=== PATIENT | female | born 1995 | race Caucasian/White ===

== ENCOUNTER 2018-07-12 12:30 | Inpatient (IN) | payer BC ==
[2018-07-12] MEDS ORDERED: Misoprostol 200 MCG Tab PO PRN (12:52)
[2018-07-12] MEDS ORDERED: Lidocaine 1% 50 ML MDV INJECT PRN (12:52)
[2018-07-12] MEDS ORDERED: Sodium Chloride 0.9% 10 ML Syringe FLUSH PRN (12:52)
[2018-07-12] MEDS ORDERED: Nalbuphine 10 MG/1 ML Vial IVPUSH PRN (12:52)
[2018-07-12] MEDS ORDERED: Methylergonovine 0.2 MG/1 ML Amp IM PRN (12:52)
[2018-07-12] MEDS ORDERED: Tranexamic Acid 1,000 MG in Sodium Chloride 0.9% 100 ML IV PRN (12:52)
[2018-07-12] MEDS ORDERED: Water For Irrigation,Sterile 1,000 ML Container IRR PRN (12:52)
[2018-07-12] MEDS ORDERED: Butorphanol 1 MG/ML SDV IVPUSH PRN (12:52)
[2018-07-12] MEDS ORDERED: Carboprost Tromethamine 250 MCG/1 ML Amp IM PRN (12:52)
[2018-07-12] MEDS ORDERED: Sodium Chloride 0.9% 2.5 ML Syringe FLUSH PRN (12:52)
[2018-07-12] MEDS ORDERED: Misoprostol 25 MCG (1/4 of 100 MCG) Tab VAG PRN ×2 (12:54)
[2018-07-12] MEDS ORDERED: Terbutaline 1 MG/ML SDV SUBCUT PRN (12:54)
[2018-07-12] MEDS ORDERED: Oxytocin/0.9 % Sodium Chloride 30 UNIT/500 ML BAG IV SCH ×2 (13:00)
[2018-07-12] MEDS: Lactated Ringers 1,000 ML IV SCH ×2 (20:37→22:37)
--- NOTE | 2018-07-12 23:51 | PCM.PREANE ---
Preanesthetic Assessment - Anesthesia/Transfusion/Family Hx Anesthesia History: Prior Anesthesia Without Reaction Family History of Anesthesia Reaction: No Transfusion History: No Prior Transfusion(s) Intubation History: Unknown - Review of Systems General: No Symptoms Pulmonary: No Symptoms Cardiovascular: No Symptoms Gastrointestinal: No Symptoms Neurological: No Symptoms Other: Reports: None - Physical Assessment Height: 5 ft 8 in Weight: 89.358 kg ASA Class: 2 Mental Status: Alert & Oriented x3 Airway Class: Mallampati = 2 Dentition: Reports: Normal Dentition Thyro-Mental Finger Breadths: 3 Mouth Opening Finger Breadths: 3 ROM/Head Extension: Full Lungs: Clear to Auscultation, Normal Respiratory Effort Cardiovascular: Regular Rate, Regular Rhythm - Lab Values: Laboratory Last Values WBC 9.34 K/uL (4.0-11.0) 07/12/18 13:07 RBC 4.03 M/uL (4.30-5.90) L 07/12/18 13:07 Hgb 12.5 g/dL (12.0-16.0) 07/12/18 13:07 Hct 37.0 % (36.0-46.0) 07/12/18 13:07 MCV 91.8 fL (80.0-98.0) 07/12/18 13:07 MCH 31.0 pg (27.0-32.0) 07/12/18 13:07 MCHC 33.8 g/dL (31.0-37.0) 07/12/18 13:07 RDW Std Deviation 44.6 fl (28.0-62.0) 07/12/18 13:07 RDW Coeff of Ron 13 % (11.0-15.0) 07/12/18 13:07 Plt Count 155 K/uL (150-400) 07/12/18 13:07 MPV 12.20 fL (7.40-12.00) H 07/12/18 13:07 Nucleated RBC % 0.0 /100WBC 07/12/18 13:07 Nucleated RBCs # 0 K/uL 07/12/18 13:07 Blood Type A NEGATIVE 07/12/18 13:07 Antibody Screen NEGATIVE 07/12/18 13:07 - Allergies Allergies/Adverse Reactions: Allergies Allergy/AdvReac Type Severity Reaction Status Date / Time No Known Allergies Allergy Verified 11/10/15 08:36 - Acknowledgements Anesthesia Type Planned: Epidural Pt an Appropriate Candidate for the Planned Anesthesia: Yes Alternatives and Risks of Anesthesia Discussed w Pt/Guardian: Yes Pt/Guardian Understands and Agrees with Anesthesia Plan: Yes PreAnesthesia Questionnaire HEENT History: Reports: None Cardiovascular History: Reports: None Respiratory History: Reports: None Gastrointestinal History: Reports: GERD, Hiatal Hernia, Irritable Bowel Syndrome Other Gastrointestinal History: biliary gallbaldder disease Genitourinary History: Reports: None LABOURERS History: Reports: , Spontaneous : 2 Para: 0 LMP (Approximate): Musculoskeletal History: Reports: None Neurological History: Reports: None Psychiatric History: Reports: Anxiety, Depression, Panic Attack, PTSD Endocrine/Metabolic History: Reports: None Hematologic History: Reports: None Immunologic History: Reports: None Oncologic (Cancer) History: Reports: None Dermatologic History: Reports: None - Infectious Disease History Infectious Disease History: Reports: Chicken Pox - Past Surgical History HEENT Surgical History: Reports: None GI Surgical History: Reports: None Female Surgical History: Reports: D&C - SUBSTANCE USE Smoking Status *Q: Never Smoker Second Hand Smoke Exposure: Yes Recreational Drug Use History: No - CURRENT (IN HOUSE) MEDS Current Meds: Current Medications Butorphanol Tartrate (Stadol) 1 mg IVPUSH Q1H PRN PRN Reason: Pain Carboprost Tromethamine (Hemabate Ds) 250 mcg IM ASDIRECTED PRN PRN Reason: Post Hemorrhage Lactated Ringer's (Ringers, Lactated) 1,000 mls @ 150 mls/hr IV ASDIRECTED EDUARDO Last Admin: 07/12/18 22:37 Dose: 125 mls/hr Oxytocin/Sodium Chloride (Oxytocin 30 Unit/500 Ml-Ns) 30 unit in 500 mls @ 500 mls/hr IV TITRATE EDUARDO Last Admin: 07/12/18 21:29 Dose: 2 mls/hr Tranexamic Acid 1,000 mg/ (Sodium Chloride) 110 mls @ 660 mls/hr IV ONETIME PRN PRN Reason: Bleeding Oxytocin/Sodium Chloride (Oxytocin 30 Unit/500 Ml-Ns) 30 unit in 500 mls @ 2 mls/hr IV TITRATE [facility]; Protocol Lidocaine HCl (Xylocaine 1%) 50 ml INJECT ONETIME PRN PRN Reason: Laceration repair Methylergonovine Maleate (Methergine) 0.2 mg IM ASDIRECTED PRN PRN Reason: Post Hemorrhage Misoprostol (Cytotec) 200 mcg PO ONETIME PRN PRN Reason: Post Hemorrhage Misoprostol (Cytotec) 25 mcg VAG ONETIME PRN PRN Reason: Cervical Ripening Last Admin: 07/12/18 13:55 Dose: 25 mcg Misoprostol (Cytotec) 25 mcg VAG Q6H PRN PRN Reason: Cervical Ripening Nalbuphine HCl (Nubain) 10 mg IVPUSH Q1H PRN PRN Reason: Pain (severe 7-10) Sodium Chloride (Saline Flush) 10 ml FLUSH ASDIRECTED PRN PRN Reason: Keep Vein Open Sodium Chloride (Saline Flush) 2.5 ml FLUSH ASDIRECTED PRN PRN Reason: Keep Vein Open Sterile Water (Sterile Water For Irrigation) 1,000 ml IRR ASDIRECTED PRN PRN Reason: delivery Terbutaline Sulfate (Brethine) 0.25 mg SUBCUT ASDIRECTED PRN PRN Reason: Tacysystole
[2018-07-13] MEDS: Lactated Ringers 1,000 ML IV SCH ×2 (00:09→02:37)
[2018-07-13] MEDS ORDERED: oxyCODONE 5 MG Tab PO PRN (09:05)
[2018-07-13] MEDS ORDERED: Benzocaine/Menthol 20%-0.5% Spray 78 GM Cannister TOP PRN (09:05)
[2018-07-13] MEDS ORDERED: Bisacodyl 10 MG Supp RECTAL PRN (09:05)
[2018-07-13] MEDS ORDERED: Lanolin 100% Cream 7 GM Tube TOP PRN (09:05)
[2018-07-13] MEDS ORDERED: Methylergonovine 0.2 MG/1 ML Amp IM PRN (09:05)
[2018-07-13] MEDS ORDERED: Acetaminophen 500 MG Tab PO PRN (09:05)
[2018-07-13] MEDS ORDERED: Ibuprofen 400 MG Tab PO PRN (09:05)
--- NOTE | 2018-07-13 09:05 | PCM.DEL ---
L & D Note - General Info Date of Service: 07/13/18 Mother's Due Date: 07/09/18 - Delivery Note Labor: Spontaneous Delivery Outcome: Livebirth Infant Delivery Method: Spontaneous Vaginal Delivery-Single Presentation: Left Occiput Anterior (SHANNAN) Nuchal Cord: None Prep: Other Anesthesia Type: Epidural Episiotomy Type: None Laceration: Vaginal Suture type: Vicryl Suture size: 3-0 Placenta: Intact, Spontaneous Cord: 3 Vessels Estimated Blood Loss: 300 Resuscitation Needed: No : Suctioned Score 1 min: 8 Score 5 min: 9 - General Info Date of Service: 07/13/18 - Patient Data Weight - Most Recent: 89.358 kg Lab Results Last 24 Hours: Laboratory Results - last 24 hr 07/12/18 07/12/18 Range/Units 13:07 13:07 WBC 9.34 (4.0-11.0) K/uL RBC 4.03 L (4.30-5.90) M/uL Hgb 12.5 (12.0-16.0) g/dL Hct 37.0 (36.0-46.0) % MCV 91.8 (80.0-98.0) fL MCH 31.0 (27.0-32.0) pg MCHC 33.8 (31.0-37.0) g/dL RDW Std Deviation 44.6 (28.0-62.0) fl RDW Coeff of Ron 13 (11.0-15.0) % Plt Count 155 (150-400) K/uL MPV 12.20 H (7.40-12.00) fL Nucleated RBC % 0.0 /100WBC Nucleated RBCs # 0 K/uL Blood Type A NEGATIVE Antibody Screen NEGATIVE Med Orders - Current: Current Medications Butorphanol Tartrate (Stadol) 1 mg IVPUSH Q1H PRN PRN Reason: Pain Carboprost Tromethamine (Hemabate Ds) 250 mcg IM ASDIRECTED PRN PRN Reason: Post Hemorrhage Lactated Ringer's (Ringers, Lactated) 1,000 mls @ 150 mls/hr IV ASDIRECTED EDUARDO Last Admin: 07/13/18 02:37 Dose: 500 mls/hr Oxytocin/Sodium Chloride (Oxytocin 30 Unit/500 Ml-Ns) 30 unit in 500 mls @ 500 mls/hr IV TITRATE EDUARDO Last Admin: 07/12/18 21:29 Dose: 2 mls/hr Tranexamic Acid 1,000 mg/ (Sodium Chloride) 110 mls @ 660 mls/hr IV ONETIME PRN PRN Reason: Bleeding Oxytocin/Sodium Chloride (Oxytocin 30 Unit/500 Ml-Ns) 30 unit in 500 mls @ 2 mls/hr IV TITRATE [facility]; Protocol Lidocaine HCl (Xylocaine 1%) 50 ml INJECT ONETIME PRN PRN Reason: Laceration repair Methylergonovine Maleate (Methergine) 0.2 mg IM ASDIRECTED PRN PRN Reason: Post Hemorrhage Misoprostol (Cytotec) 200 mcg PO ONETIME PRN PRN Reason: Post Hemorrhage Misoprostol (Cytotec) 25 mcg VAG ONETIME PRN PRN Reason: Cervical Ripening Last Admin: 07/12/18 13:55 Dose: 25 mcg Misoprostol (Cytotec) 25 mcg VAG Q6H PRN PRN Reason: Cervical Ripening Nalbuphine HCl (Nubain) 10 mg IVPUSH Q1H PRN PRN Reason: Pain (severe 7-10) Sodium Chloride (Saline Flush) 10 ml FLUSH ASDIRECTED PRN PRN Reason: Keep Vein Open Sodium Chloride (Saline Flush) 2.5 ml FLUSH ASDIRECTED PRN PRN Reason: Keep Vein Open Sterile Water (Sterile Water For Irrigation) 1,000 ml IRR ASDIRECTED PRN PRN Reason: delivery Terbutaline Sulfate (Brethine) 0.25 mg SUBCUT ASDIRECTED PRN PRN Reason: Tacysystole Discontinued Medications Fentanyl/Bupivacaine HCl (Yaarnfuy-Buhzg-Dc 2 Mcg/Ml-0.125%) Confirm Administered Dose 100 mls @ as directed EP .STK-MED ONE Stop: 07/12/18 23:54 - Problem List & Annotations (1) Vaginal delivery SNOMED Code(s): 730257970 Code(s): O80 - ENCOUNTER FOR FULL-TERM UNCOMPLICATED DELIVERY Status: Acute Current Visit: Yes - Problem List Review Problem List Initiated/Reviewed/Updated: Yes
[2018-07-13] MEDS: Docusate Sodium 100 MG Cap PO PRN (11:12)
[2018-07-13] MEDS: Ibuprofen 800 MG Tab PO PRN ×2 (11:13→21:05)
[2018-07-13] MEDS: Witch Hazel Medicated Pads 40/Jar TOP PRN (11:14)
--- NOTE | 2018-07-13 15:32 | PCM48HPAN ---
Post Anesthesia Note - EVALUATION WITHIN 48HRS OF ANESTHETIC Vital Signs in Normal Range: Yes Patient Participated in Evaluation: Yes Respiratory Function Stable: Yes Airway Patent: Yes Cardiovascular Function Stable: Yes Hydration Status Stable: Yes Pain Control Satisfactory: Yes Nausea and Vomiting Control Satisfactory: Yes Mental Status Recovered: Yes
[2018-07-13] MEDS: Acetaminophen 500 MG Tab PO PRN (21:06)
[2018-07-14] MEDS: Ibuprofen 800 MG Tab PO PRN ×2 (06:26→14:52)
--- NOTE | 2018-07-14 06:57 | PCM.PNPP ---
- General Info Date of Service: 07/14/18 Functional Status: Reports: Pain Controlled, Tolerating Diet, Ambulating, Urinating, Other (struggling with . Has trouble with nursing, but latching ok.) - Review of Systems General: Reports: No Symptoms HEENT: Reports: No Symptoms Pulmonary: Reports: No Symptoms Cardiovascular: Reports: No Symptoms Gastrointestinal: Reports: No Symptoms Genitourinary: Reports: No Symptoms Musculoskeletal: Reports: No Symptoms Skin: Reports: No Symptoms Neurological: Reports: No Symptoms Psychiatric: Reports: No Symptoms - General Info Date of Service: 07/14/18 - Patient Data Vital Signs - Most Recent: Last Vital Signs Temp 37.1 C 07/13/18 13:16 Pulse 92 07/13/18 21:45 Resp 17 07/13/18 21:45 BP 124/75 07/13/18 21:45 Pulse Ox 98 07/13/18 21:45 Weight - Most Recent: 89.358 kg Lab Results - Last 24 Hours: Laboratory Results - last 24 hr 07/13/18 07/13/18 07/14/18 Range/Units 08:40 10:00 06:20 Hgb 11.2 L (12.0-16.0) g/dL Hct 33.6 L (36.0-46.0) % Cord ABG pH 7.266 (7.18-7.38) Cord ABG Base Excess -7 (-10--2) Cord VBG pH 7.251 (7.25-7.45) Cord VBG Base Excess -6 (-10--2) Screen NEGATIVE (NEGATIVE) RhIG Candidate? YES Rhogam Indicated YES, BABY RH POS H Med Orders - Current: Current Medications Acetaminophen (Tylenol Extra Strength) 500 mg PO Q4H PRN PRN Reason: Pain Acetaminophen (Tylenol Extra Strength) 1,000 mg PO Q4H PRN PRN Reason: Pain Last Admin: 07/13/18 21:06 Dose: 1,000 mg Benzocaine/Menthol (Dermoplast Pain Relief 20%-0.5% [place]) 78 gm TOP ASDIRECTED PRN PRN Reason: Perineal Comfort Measure Last Admin: 07/13/18 11:14 Dose: 1 canister Bisacodyl (Dulcolax) 10 mg RECTAL ONETIME PRN PRN Reason: Constipation Docusate Sodium (Colace) 100 mg PO BID PRN PRN Reason: Constipation Last Admin: 07/13/18 11:12 Dose: 100 mg Emollient Ointment (Lansinoh Hpa) 0 gm TOP ASDIRECTED PRN PRN Reason: Sore Nipples Ibuprofen (Motrin) 400 mg PO Q4H PRN PRN Reason: Pain Ibuprofen (Motrin) 800 mg PO Q6H PRN PRN Reason: Pain Last Admin: 07/14/18 06:26 Dose: 800 mg Methylergonovine Maleate (Methergine) 0.2 mg IM ONETIME PRN PRN Reason: Excessive Vaginal Bleeding Oxycodone HCl (Oxycodone) 5 mg PO Q2H PRN PRN Reason: Pain Witch Yanira (Tucks) 1 pad TOP ASDIRECTED PRN PRN Reason: comfort care Last Admin: 07/13/18 11:14 Dose: 1 container Discontinued Medications Butorphanol Tartrate (Stadol) 1 mg IVPUSH Q1H PRN PRN Reason: Pain Carboprost Tromethamine (Hemabate Ds) 250 mcg IM ASDIRECTED PRN PRN Reason: Post Hemorrhage Lactated Ringer's (Ringers, Lactated) 1,000 mls @ 150 mls/hr IV ASDIRECTED EDUARDO Last Admin: 07/13/18 02:37 Dose: 500 mls/hr Oxytocin/Sodium Chloride (Oxytocin 30 Unit/500 Ml-Ns) 30 unit in 500 mls @ 500 mls/hr IV TITRATE [facility] Last Admin: 07/12/18 21:29 Dose: 2 mls/hr Tranexamic Acid 1,000 mg/ (Sodium Chloride) 110 mls @ 660 mls/hr IV ONETIME PRN PRN Reason: Bleeding Oxytocin/Sodium Chloride (Oxytocin 30 Unit/500 Ml-Ns) 30 unit in 500 mls @ 2 mls/hr IV TITRATE [facility]; Protocol Fentanyl/Bupivacaine HCl (Yyoclpmt-Bicwc-Tl 2 Mcg/Ml-0.125%) Confirm Administered Dose 100 mls @ as directed EP .STK-MED ONE Stop: 07/12/18 23:54 Lidocaine HCl (Xylocaine 1%) 50 ml INJECT ONETIME PRN PRN Reason: Laceration repair Methylergonovine Maleate (Methergine) 0.2 mg IM ASDIRECTED PRN PRN Reason: Post Hemorrhage Misoprostol (Cytotec) 200 mcg PO ONETIME PRN PRN Reason: Post Hemorrhage Misoprostol (Cytotec) 25 mcg VAG ONETIME PRN PRN Reason: Cervical Ripening Last Admin: 07/12/18 13:55 Dose: 25 mcg Misoprostol (Cytotec) 25 mcg VAG Q6H PRN PRN Reason: Cervical Ripening Nalbuphine HCl (Nubain) 10 mg IVPUSH Q1H PRN PRN Reason: Pain (severe 7-10) Sodium Chloride (Saline Flush) 10 ml FLUSH ASDIRECTED PRN PRN Reason: Keep Vein Open Sodium Chloride (Saline Flush) 2.5 ml FLUSH ASDIRECTED PRN PRN Reason: Keep Vein Open Sterile Water (Sterile Water For Irrigation) 1,000 ml IRR ASDIRECTED PRN PRN Reason: delivery Terbutaline Sulfate (Brethine) 0.25 mg SUBCUT ASDIRECTED PRN PRN Reason: Tacysystole - Interaction Disposition, : [place] at Bedside Interaction: Holding Feeding: Attempted ; Nursed Fair/Poor Support Person: Significant Other - Recovery Exam Fundal Tone: Firm Fundal Level: At Umbilicus Fundal Placement: Midline Lochia Amount: Small Lochia Color: Rubra/Red Perineum Description: Intact, Minimal Bruising/Swelling Bladder Status: Voiding - Exam General: Alert, Oriented HEENT: Pupils Equal Neck: Supple Lungs: Clear to Auscultation, Normal Respiratory Effort Cardiovascular: Regular Rate, Regular Rhythm GI/Abdominal Exam: Normal Bowel Sounds, Soft, No Distention, No Abnormal Bruit, No Mass Extremities: Normal Inspection, No Pedal Edema Skin: Warm, Dry, Intact Neurological: No New Focal Deficit Psy/Mental Status: Alert, Normal Affect, Normal Mood - Problem List & Annotations (1) Vaginal delivery SNOMED Code(s): 468788704 Code(s): O80 - ENCOUNTER FOR FULL-TERM UNCOMPLICATED DELIVERY Status: Acute Current Visit: Yes - Problem List Review Problem List Initiated/Reviewed/Updated: Yes - My Orders Last 24 Hours: My Active Orders 07/13/18 09:05 Acetaminophen [Tylenol Extra Strength] 1,000 mg PO Q4H PRN Acetaminophen [Tylenol Extra Strength] 500 mg PO Q4H PRN Benzocaine/Menthol [Dermoplast Pain Relief 20%-0.5% [place]] 78 gm TOP ASDIRECTED PRN Bisacodyl [Dulcolax] 10 mg RECTAL ONETIME PRN Docusate Sodium [Colace] 100 mg PO BID PRN Ibuprofen [Motrin] 400 mg PO Q4H PRN Ibuprofen [Motrin] 800 mg PO Q6H PRN Lanolin [Lansinoh HPA] See Dose Instructions TOP ASDIRECTED PRN Methylergonovine [Methergine] 0.2 mg IM ONETIME PRN Witch Yanira [Tucks] 1 pad TOP ASDIRECTED PRN oxyCODONE 5 mg PO Q2H PRN Resuscitation Status Routine 07/13/18 09:06 Patient Status [ADT] Routine May Shower [RC] ASDIRECTED Up ad Winter [RC] ASDIRECTED Vital Signs [RC] PER UNIT ROUTINE Assess Lochia [WOMSER] Per Unit Routine Assess Uterine Involution [WOMSER] Per Unit Routine Perineal Care [OM.PC] Per Unit Routine Peripheral IV Discontinue [OM.PC] Routine 07/13/18 10:00 SCREEN [BBK] Routine RH IMMUNE GLOBULIN [BBK] Routine RHIG WORKUP, [BBK] Routine 07/13/18 Lunch Regular Diet [DIET] - Assessment Assessment:: PPD#1 after , working on , moderate lochia, tolerating diet, - Plan Plan:: STill would like support, may want to stay until tomorrow, discharge instructions reviewed in case she wants to go home later today.
[2018-07-14] MEDS: Acetaminophen 500 MG Tab PO PRN ×2 (08:19→22:14)
[2018-07-14] MEDS: Witch Hazel Medicated Pads 40/Jar TOP PRN (22:14)
[2018-07-15 07:17] VITALS: BP 122/76
[2018-07-15] MEDS: Ibuprofen 800 MG Tab PO PRN (07:27)
[2018-07-15] MEDS: Docusate Sodium 100 MG Cap PO PRN (07:27)
--- NOTE | 2018-07-15 08:47 | PCM.PNPP ---
- General Info Date of Service: 07/15/18 Functional Status: Reports: Pain Controlled, Tolerating Diet, Ambulating, Urinating ( is going better, sometimes tearful overall appropriate mood. Vulva is a little sore) - Review of Systems General: Reports: No Symptoms HEENT: Reports: No Symptoms Pulmonary: Reports: No Symptoms Cardiovascular: Reports: No Symptoms Gastrointestinal: Reports: No Symptoms Genitourinary: Reports: No Symptoms Musculoskeletal: Reports: No Symptoms Skin: Reports: No Symptoms Neurological: Reports: No Symptoms Psychiatric: Reports: No Symptoms - General Info Date of Service: 07/15/18 - Patient Data Vital Signs - Most Recent: Last Vital Signs Temp 36.7 C 07/15/18 07:16 Pulse 75 07/15/18 07:16 Resp 18 07/15/18 07:16 BP 122/76 07/15/18 07:16 Pulse Ox 95 07/15/18 07:16 Weight - Most Recent: 89.358 kg I&O - Last 24 Hours: Intake & Output 07/14/18 07/15/18 07/15/18 22:59 06:59 14:59 Intake Total 2 Balance 2 Lab Results - Last 24 Hours: Laboratory Results - last 24 hr 07/13/18 Range/Units 10:00 Screen NEGATIVE (NEGATIVE) RhIG Candidate? YES Rhogam Indicated YES, BABY RH POS H Med Orders - Current: Current Medications Acetaminophen (Tylenol Extra Strength) 500 mg PO Q4H PRN PRN Reason: Pain Acetaminophen (Tylenol Extra Strength) 1,000 mg PO Q4H PRN PRN Reason: Pain Last Admin: 07/14/18 22:14 Dose: 1,000 mg Benzocaine/Menthol (Dermoplast Pain Relief 20%-0.5% [place]) 78 gm TOP ASDIRECTED PRN PRN Reason: Perineal Comfort Measure Last Admin: 07/13/18 11:14 Dose: 1 canister Bisacodyl (Dulcolax) 10 mg RECTAL ONETIME PRN PRN Reason: Constipation Docusate Sodium (Colace) 100 mg PO BID PRN PRN Reason: Constipation Last Admin: 07/15/18 07:27 Dose: 100 mg Emollient Ointment (Lansinoh Hpa) 0 gm TOP ASDIRECTED PRN PRN Reason: Sore Nipples Ibuprofen (Motrin) 400 mg PO Q4H PRN PRN Reason: Pain Ibuprofen (Motrin) 800 mg PO Q6H PRN PRN Reason: Pain Last Admin: 07/15/18 07:27 Dose: 800 mg Methylergonovine Maleate (Methergine) 0.2 mg IM ONETIME PRN PRN Reason: Excessive Vaginal Bleeding Oxycodone HCl (Oxycodone) 5 mg PO Q2H PRN PRN Reason: Pain Witch Yanira (Tucks) 1 pad TOP ASDIRECTED PRN PRN Reason: comfort care Last Admin: 07/14/18 22:14 Dose: 1 container Discontinued Medications Butorphanol Tartrate (Stadol) 1 mg IVPUSH Q1H PRN PRN Reason: Pain Carboprost Tromethamine (Hemabate Ds) 250 mcg IM ASDIRECTED PRN PRN Reason: Post Hemorrhage Lactated Ringer's (Ringers, Lactated) 1,000 mls @ 150 mls/hr IV ASDIRECTED EDUARDO Last Admin: 07/13/18 02:37 Dose: 500 mls/hr Oxytocin/Sodium Chloride (Oxytocin 30 Unit/500 Ml-Ns) 30 unit in 500 mls @ 500 mls/hr IV TITRATE EDUARDO Last Admin: 07/12/18 21:29 Dose: 2 mls/hr Tranexamic Acid 1,000 mg/ (Sodium Chloride) 110 mls @ 660 mls/hr IV ONETIME PRN PRN Reason: Bleeding Oxytocin/Sodium Chloride (Oxytocin 30 Unit/500 Ml-Ns) 30 unit in 500 mls @ 2 mls/hr IV TITRATE [facility]; Protocol Fentanyl/Bupivacaine HCl (Ykuuijcl-Eqifu-Kb 2 Mcg/Ml-0.125%) Confirm Administered Dose 100 mls @ as directed EP .STK-MED ONE Stop: 07/12/18 23:54 Lidocaine HCl (Xylocaine 1%) 50 ml INJECT ONETIME PRN PRN Reason: Laceration repair Methylergonovine Maleate (Methergine) 0.2 mg IM ASDIRECTED PRN PRN Reason: Post Hemorrhage Misoprostol (Cytotec) 200 mcg PO ONETIME PRN PRN Reason: Post Hemorrhage Misoprostol (Cytotec) 25 mcg VAG ONETIME PRN PRN Reason: Cervical Ripening Last Admin: 07/12/18 13:55 Dose: 25 mcg Misoprostol (Cytotec) 25 mcg VAG Q6H PRN PRN Reason: Cervical Ripening Nalbuphine HCl (Nubain) 10 mg IVPUSH Q1H PRN PRN Reason: Pain (severe 7-10) Sodium Chloride (Saline Flush) 10 ml FLUSH ASDIRECTED PRN PRN Reason: Keep Vein Open Sodium Chloride (Saline Flush) 2.5 ml FLUSH ASDIRECTED PRN PRN Reason: Keep Vein Open Sterile Water (Sterile Water For Irrigation) 1,000 ml IRR ASDIRECTED PRN PRN Reason: delivery Terbutaline Sulfate (Brethine) 0.25 mg SUBCUT ASDIRECTED PRN PRN Reason: Tacysystole - Infant Interaction Infant Disposition, : to Nursery Infant Interaction: Holding Infant Feeding: Breastfed Infant; Nursed Well Support Person: Significant Other - Recovery Exam Fundal Tone: Firm Fundal Level: 2 Fingerbreadths Below Umbilicus Fundal Placement: Midline Lochia Amount: Scant Lochia Color: Rubra/Red Perineum Description: Other (see below) Other Perinuem Description: 1st degree laceration Episiotomy/Laceration: Approximated Bladder Status: Voiding - Exam General: Alert, Oriented HEENT: Pupils Equal Neck: Supple Lungs: Normal Respiratory Effort Cardiovascular: Regular Rate GI/Abdominal Exam: Soft, Non-Tender, No Organomegaly, No Distention Extremities: Normal Inspection, Non-Tender, Normal Capillary Refill Skin: Warm, Dry, Intact Wound/Incisions: Healing Well Neurological: No New Focal Deficit Psy/Mental Status: Alert, Normal Affect, Normal Mood - Problem List & Annotations (1) Vaginal delivery SNOMED Code(s): 155474832 Code(s): O80 - ENCOUNTER FOR FULL-TERM UNCOMPLICATED DELIVERY Status: Acute Current Visit: Yes - Problem List Review Problem List Initiated/Reviewed/Updated: Yes - Assessment Assessment:: PPD#2 after , is improved, pumping with good results, also . Mood is doing fairly well, she is a little tearful. Reviewed normal hormonal changes vs depression and when to call. - Plan Plan:: Dismiss to home today, discharge instructions reviewed.
[2018-07-15] MEDS: Acetaminophen 500 MG Tab PO PRN (11:42)
--- NOTE | 2018-07-16 08:32 | OR ---
SURGEON: Sahara Crouch M.D. DATE OF PROCEDURE: 07/13/2018 PREOPERATIVE DIAGNOSES: 1. 40 and 4/7 week intrauterine . 2. Induction of labor for post dates. 3. Transfer of care at 30 weeks. 4. Blood type A negative, rubella immune. POSTOPERATIVE DIAGNOSES: 1. 40 and 4/7 week intrauterine . 2. Induction of labor for post dates. 3. Transfer of care at 30 weeks. 4. Blood type A negative, rubella immune. PROCEDURES: 1. Cytotec induction of labor with Pitocin augmentation. 2. Term spontaneous vaginal delivery. 3. Repair of right vaginal sidewall laceration. ANESTHESIA: Epidural. ESTIMATED BLOOD LOSS: Less than 300 mL. FINDINGS: Live born male, score 8 and 9, weighing 3660 g. Placenta spontaneous, Schultze intact, with 3 vessels. There was a right vaginal laceration repaired. COMPLICATIONS: None known. DISPOSITION: Stable. Mother and baby are stable in LDRP. BRIEF HISTORY: This is a 22-year-old female she is G2, P1-0-1-0. She presented at 40 and 4/7 weeks' gestation for induction of labor. She received a single dose of Cytotec. She had a good response to the Cytotec. There were some decelerations, heart tones remained category 1 and category 2 throughout labor. She progressed to complete. DESCRIPTION OF PROCEDURE: With the patient in dorsal lithotomy position, the patient pushed over approximately 2 hour time period to a 5+ station, at which time the head was delivered spontaneously and atraumatically over the perineum with support with subsequent delivery of the infant's shoulders and body without any difficulty. The infant was bulb suctioned by nose and mouth. The cord was clamped x2 and cut after it had ceased to pulsate and the infant was handed to the mother in the presence of the nurse attending delivery. The was a liveborn male, score 8 and 9, weighing 3660 g. Placenta was delivered spontaneously. Schultze intact with 3 vessels. Upon inspection the pelvis and perineum, there were no periurethral, cervical, rectal, or perineal lacerations. There was a right vaginal sidewall laceration that was repaired using a running locked suture of 3-0 Vicryl. Final sponge, needle, and instrument count were correct. There were no known complications. Infant and mother are in LDRP in good condition. CLARKE / KATIE /[id number]
== END 2018-07-15 12:10 | disposition home or self-care (01) | DRG 560 ==
LOC: MW.OBCHECK 12:30 → MW.OB 12:32 → MW.OBCHECK 07-13 08:40 → OBSVTOIN 07-13 09:06 → MW.OB 07-13 13:35
PROVIDERS: ADMIT Obstetrics & Gynecology; ATTEND Obstetrics & Gynecology
PROC: 10E0XZZ Delivery of Products of Conception, External Approach (ICD-10-PCS; principal; 2018-07-13)
PROC: 3E0P7VZ Introduction of Hormone into Female Reproductive, Via Natural or Artificial Opening (ICD-10-PCS; 2018-07-13)
PROC: 10907ZC Drainage of Amniotic Fluid, Therapeutic from Products of Conception, Via Natural or Artificial Opening (ICD-10-PCS; 2018-07-13)
PROC: 4A1H7CZ Monitoring of Products of Conception, Cardiac Rate, Via Natural or Artificial Opening (ICD-10-PCS; 2018-07-13)
PROC: 0HQ9XZZ Repair Perineum Skin, External Approach (ICD-10-PCS; 2018-07-13)
PROC: 00HU33Z Insertion of Infusion Device into Spinal Canal, Percutaneous Approach (ICD-10-PCS; 2018-07-13)
DX: O48.0 Post-term pregnancy (principal); O70.0 First degree perineal laceration during delivery; Z3A.40 40 weeks gestation of pregnancy; Z37.0 Single live birth
CPT/HCPCS: 01967-QZ; 36415; 59025; 59409; 82803; 85014; 85018; 85027; 85460; 86850; 86900; 86901; A9270-GY; J2590; J2792; J7120